=== PATIENT | female | born 1960 | race Caucasian/White ===

== ENCOUNTER 2019-11-06 22:14 | Inpatient (IN) ==
[2019-11-06] MEDS ORDERED: SODIUM CHLORIDE 0.9% 1,000 ML IV STA (22:55)
[2019-11-06] MEDS ORDERED: VANCOMYCIN INJ 1,500 MG in SODIUM CHLORIDE 0.9% 250 ML IV STA (22:55)
[2019-11-06] MEDS ORDERED: methylPREDNISolone SOD SUC 125 MG/2 ML VIAL IV STA (22:59)
[2019-11-06] MEDS ORDERED: VANCOMYCIN INJ 2,000 MG in SODIUM CHLORIDE 0.9% 500 ML IV STA ×2 (23:02→23:30)
[2019-11-06] MEDS ORDERED: VANCOMYCIN INJ 1,000 MG in SODIUM CHLORIDE 0.9% 250 ML IV STA (23:27)
[2019-11-07 00:25] LABS: Basophils # 0.1 10*3/uL (0.0-0.2); Basophils % 0.3 % (0.0-0.8); Eosinophils # 1.3 10*3/uL (0.0-0.87); Eosinophils % 6.9 % (0.00-10.9); Hemoglobin 14.6 GM/DL (12.0-16.0); Immature Granulocytes % 0.7 %; Immature Granulocytes Absolute 0.13 #; Lymphocytes % 15.6 % (21.3-54.2); Mean Corpuscular HGB Conc 32.4 GM/DL (32-36); Mean Corpuscular Volume 95.1 FL (87-102); Mean Platelet Volume 8.7 FL (9.6-12.0); Neutrophils % 68.5 % (38.7-73.9); Platelet Count 380 T/CUMM (130-400); Red Blood Count 4.73 MC/CUMM (3.8-5.5); Red Cell Distribution Width 13.1 % (9.3-17.3)
[2019-11-07 01:02] LABS: Apearance,Urine Slightly Hazy (Clear); Bacteria,Urine Occasional /HPF (Few); Bilirubin,Urine Negative (Negative); Blood, Urine Negative (Negative); Glucose,Urine (UA) Negative (Negative); Ketones,Urine Negative (Negative); Mucus,Urine Occasional /LPF (Occasional); Nitrite,Urine Negative (Negative); Protein,Urine Negative; RBC,Urine 1 /HPF (0-4); Squamous Epithelial Cell,Urine Occasional /HPF (0-10); Urine Color Yellow (Yellow); Urine Specific Gravity 1.033 (1.001-1.035); WBC,Urine 2 /HPF (0-6)
[2019-11-07 01:36] LABS: Alanine Aminotransferase 24 U/L (13-56); Albumin 3.3 G/DL (3.4-5.0); Alkaline Phosphatase 128 U/L (45-117); Aspartate Amino Transferase 15 U/L (0-37); Bilirubin,Total < 0.39 MG/DL (0.2-1.0); Blood Urea Nitrogen 25 MG/DL (7-18); Calcium 8.3 MG/DL (8.5-10.1); Estimated Glom Filtration Rate 116 ML/MIN; Ferritin 56.1 ng/ml (8-252); Glucose 109 MG/DL (74-106); Osmolality,Calculated 279.7 MOS/KG (273-304); Total Protein 6.8 G/DL (6.4-8.3); Troponin I < 0.015 NG/ML (0.00-0.045)
[2019-11-07] MEDS ORDERED: ACETAMINOPHEN 500 MG TABLET PO STA (01:57)
[2019-11-07 02:07] LABS: Sedimentation Rate-Westergren 3 MM/HR (0-30)
[2019-11-07] MEDS ORDERED: ONDANSETRON 4 MG/2 ML VIAL IV PRN (03:26)
[2019-11-07] MEDS ORDERED: FLUCONAZOLE INJ 800 MG in PREMIX 1 EACH IV ONE (04:00)
[2019-11-07] MEDS: PIPERACILLIN/TAZOBACTAM 3,375 MG in SODIUM CHLORIDE 0.9% 100 ML IV SCH ×3 (05:00→20:58)
[2019-11-07] MEDS ORDERED: PHENYTOIN ER 100 MG CAPSULE PO SCH (09:00)
[2019-11-07] MEDS: MELOXICAM 7.5 MG TABLET PO SCH (09:39)
[2019-11-07] MEDS: ENOXAPARIN 40 MG/0.4 ML SYRINGE SUBCUT SCH (09:40)
[2019-11-07] MEDS: PHENYTOIN ER 100 MG CAPSULE PO SCH ×3 (09:40→20:59)
[2019-11-07] MEDS: ESTRADIOL 2 MG TABLET PO SCH (09:40)
[2019-11-07] MEDS: VANCOMYCIN INJ 1,500 MG in SODIUM CHLORIDE 0.9% 500 ML IV SCH (09:43)
[2019-11-07] MEDS: DOCUSATE SODIUM 100 MG CAPSULE PO PRN (20:59)
[2019-11-07] MEDS: ACETAMINOPHEN 325 MG TABLET PO PRN (20:59)
[2019-11-07] MEDS: LATANOPROST 0.005% OPH SOLN 2.5 ML BOTTLE BOTH EYES SCH (21:00)
[2019-11-08] MEDS: VANCOMYCIN INJ 1,500 MG in SODIUM CHLORIDE 0.9% 500 ML IV SCH ×2 (00:44→13:28)
[2019-11-08] MEDS: PIPERACILLIN/TAZOBACTAM 3,375 MG in SODIUM CHLORIDE 0.9% 100 ML IV SCH ×3 (05:00→21:00)
[2019-11-08] MEDS: FLUCONAZOLE INJ 400 MG in PREMIX 1 EACH IV SCH (05:00)
[2019-11-08 07:06] LABS: Basophils % 0.2 % (0.0-0.8); Eosinophils # 1.3 10*3/uL (0.0-0.87); Eosinophils % 9.9 % (0.00-10.9); Hematocrit 35.3 VOL% (35.7-47.0); Hemoglobin 11.4 GM/DL (12.0-16.0); Immature Granulocytes % 0.4 %; Immature Granulocytes Absolute 0.05 #; Lymphocytes # 2.8 10*3/uL (1.4-4.0); Lymphocytes % 21.1 % (21.3-54.2); Mean Corpuscular HGB Conc 32.3 GM/DL (32-36); Mean Corpuscular Volume 94.4 FL (87-102); Monocytes % 8.7 % (1.7-12.7); Neutrophils % 59.7 % (38.7-73.9); Platelet Count 290 T/CUMM (130-400); Red Blood Count 3.74 MC/CUMM (3.8-5.5); Red Cell Distribution Width 13.3 % (9.3-17.3); White Blood Count 13.4 T/CUMM (4-12)
[2019-11-08 08:03] LABS: Osmolality,Calculated 281.3 MOS/KG (273-304)
[2019-11-08] MEDS: MELOXICAM 7.5 MG TABLET PO SCH (09:54)
[2019-11-08] MEDS: ESTRADIOL 2 MG TABLET PO SCH (09:55)
[2019-11-08] MEDS: PHENYTOIN ER 100 MG CAPSULE PO SCH ×3 (09:55→21:00)
[2019-11-08] MEDS: ENOXAPARIN 40 MG/0.4 ML SYRINGE SUBCUT SCH (09:55)
[2019-11-08] MEDS: DOCUSATE SODIUM 100 MG CAPSULE PO PRN (21:00)
[2019-11-08] MEDS: ACETAMINOPHEN 325 MG TABLET PO PRN (21:01)
[2019-11-08] MEDS: LATANOPROST 0.005% OPH SOLN 2.5 ML BOTTLE BOTH EYES SCH (21:01)
[2019-11-09] MEDS ORDERED: VANCOMYCIN INJ 1,750 MG in SODIUM CHLORIDE 0.9% 500 ML IV SCH (01:00)
[2019-11-09] MEDS: FLUCONAZOLE INJ 400 MG in PREMIX 1 EACH IV SCH (05:00)
[2019-11-09] MEDS: PIPERACILLIN/TAZOBACTAM 3,375 MG in SODIUM CHLORIDE 0.9% 100 ML IV SCH (05:00)
[2019-11-09 06:38] LABS: Basophils # 0.1 10*3/uL (0.0-0.2); Basophils % 0.4 % (0.0-0.8); Eosinophils # 1.4 10*3/uL (0.0-0.87); Hemoglobin 10.8 GM/DL (12.0-16.0); Immature Granulocytes % 0.6 %; Immature Granulocytes Absolute 0.07 #; Lymphocytes # 2.7 10*3/uL (1.4-4.0); Lymphocytes % 21.6 % (21.3-54.2); Mean Corpuscular HGB Conc 31.8 GM/DL (32-36); Mean Corpuscular Volume 97.4 FL (87-102); Mean Platelet Volume 9.4 FL (9.6-12.0); Monocytes % 8.5 % (1.7-12.7); Neutrophils % 57.9 % (38.7-73.9); Platelet Count 281 T/CUMM (130-400); Red Blood Count 3.49 MC/CUMM (3.8-5.5); Red Cell Distribution Width 13.3 % (9.3-17.3); White Blood Count 12.4 T/CUMM (4-12)
[2019-11-09 07:41] VITALS: BP 112/67
[2019-11-09] MEDS: PHENYTOIN ER 100 MG CAPSULE PO SCH (08:12)
[2019-11-09] MEDS: MELOXICAM 7.5 MG TABLET PO SCH (08:13)
[2019-11-09] MEDS: ESTRADIOL 2 MG TABLET PO SCH (08:13)
[2019-11-09] MEDS: ENOXAPARIN 40 MG/0.4 ML SYRINGE SUBCUT SCH (08:13)
[2019-11-09 12:48] LABS: Atypical Lymphocytes Few; Eosinophils 7 % (0-10); Lymphocytes 19 % (20-55); Platelet Estimate Adequate; Schistocytes Slight; Segmented Neutrophils 70 % (50-85); Total Cells Counted 100
== END 2019-11-09 12:05 | disposition home or self-care (01) | DRG 603 ==
LOC: N.ED 22:14 → N.EDINP 11-07 01:36 → N.3E 11-07 02:42
PROVIDERS: ADMIT Internal Medicine; ATTEND Internal Medicine